=== PATIENT | male | born 1980 | race African-American/Black ===

== ENCOUNTER → 2018-08-18 | Outpatient (CLI) | payer OTHER ==
--- NOTE | 2018-08-18 22:37 | MR ---
EXAMINATION TYPE: MR knee LT wo con DATE OF EXAM: 08/18/2018 COMPARISON: Outside left knee x-ray 5 days ago. HISTORY: Lt knee pain per order. Fall injury 2 weeks ago with pain and swelling for patient. TECHNIQUE: Multiplanar, multisequence images of the knee is performed without IV contrast. FINDINGS: MEDIAL MENISCUS: Anterior and posterior horns are intact without tear. LATERAL MENISCUS: Anterior and posterior horns are intact without tear. CRUCIATE LIGAMENTS: The posterior cruciate ligament is intact and unremarkable. There is artifact fro m prior ACL repair surgery with recurrent tear as distal fibers are now absent. COLLATERAL LIGAMENTS: The medial collateral ligament and lateral collateral ligament complex are inta ct. Increased fluid surrounds the medial collateral ligament. EXTENSOR MECHANISM: Visualized quadriceps and patellar tendons are intact. EFFUSION: No significant suprapatellar joint effusion. POPLITEAL CYST: There is tiny popliteal/winters cyst on axial image 11. TRICOMPARTMENT SPACES: Mild/moderate tricompartment joint space loss with mild to moderate spurring m ost prominent medial and lateral tibiofemoral compartments. CARTILAGE:Thinning of articular cartilage medial tibial femoral compartment is present. BONE MARROW SIGNAL: Areas of heterogeneous diminished T1 and increased T2 signal distal medial femor al condyle at the site of most prominent cartilaginous loss. OTHER: No additional significant abnormality is appreciated. IMPRESSION: 1. Recurrent full thickness ACL tear felt present. 2. Mild MCL strain injury. 3. Mild to borderline moderate tricompartment degenerative changes most prominent medial tibiofemoral compartment somewhat pronounced for patient's chronologic age.
== END | disposition home or self-care (01) ==
LOC: RADMRIMAIN 21:45
PROVIDERS: ATTEND Orthopaedic Surgery
DX: S83.512A Sprain of anterior cruciate ligament of left knee, initial encounter (principal); S89.82XA Other specified injuries of left lower leg, initial encounter

== ENCOUNTER → 2018-09-06 | Outpatient (CLI) | payer OTHER ==
[2018-09-06 15:50] LABS: Basophils # (A) 0.1 k/uL (0-0.2); Basophils % (A) 1 %; Eosinophils # (A) 0.2 k/uL (0-0.7); Eosinophils % (A) 2 %; HCT 40.9 % (39.0-53.0); HGB 13.6 gm/dL (13.0-17.5); Lymphocytes # (A) 4.7 k/uL (1.0-4.8); Lymphocytes % (A) 39 %; MCH 28.1 pg (25.0-35.0); MCHC 33.2 g/dL (31.0-37.0); MCV 84.5 fL (80.0-100.0); Mean Platelet Volume 6.4; Monocytes # (A) 0.8 k/uL (0-1.0); Monocytes % (A) 6 %; Neutrophils # (A) 6.1 k/uL (1.3-7.7); Neutrophils % (A) 51 %; Platelet Count 293 k/uL (150-450); RBC 4.84 m/uL (4.30-5.90); RDW 13.5 % (11.5-15.5); WBC 12.1 k/uL (3.8-10.6)
[2018-09-06 15:59] LABS: Potassium 4.1 mmol/L (3.5-5.1)
== END | disposition home or self-care (01) ==
LOC: LABPAT 15:16
PROVIDERS: ATTEND Orthopaedic Surgery
DX: Z01.812 Encounter for preprocedural laboratory examination (principal); M23.92 Unspecified internal derangement of left knee
CPT/HCPCS: 80051; 85025

== ENCOUNTER → 2018-09-08 | Outpatient (CLI) | payer OTHER ==
--- NOTE | 2018-09-08 14:00 | MR ---
MR right wrist HISTORY: Right wrist pain Multiplanar multisequence imaging through the right wrist Correlation to plain film 08/30/2018 There is abnormal thickening, abnormal increased signal associated with the extensor carpi ulnaris te ndon of the right wrist. Some abnormal increased internal signal is present. There is edema signal pr esent along the surrounding soft tissues. Fluid is present within the radioulnar joint. There is nay a present at the distal ulna. Triangular fibrocartilage is discontinuous. Fluid signal present distal to the expected insertion of the triangular fibrocartilage along the proximal carpal row medially. S mall ossific density is present at the level of the distal aspect of the ulnar styloid as noted on pl ain film. Scapholunate, lunotriquetral been sent to be intact. IMPRESSION: Triangular fibrocartilage rupture. Possible tendinosis or posttraumatic changes to the ex tensor carpi ulnaris tendon, no donna rupture. There is joint effusion present as described.
== END | disposition home or self-care (01) ==
LOC: RADMRIMAIN 08:00
PROVIDERS: ATTEND Orthopaedic Surgery
DX: M25.431 Effusion, right wrist (principal); S63.591A Other specified sprain of right wrist, initial encounter

== ENCOUNTER 2018-09-14 08:30 | Day surgery (SDC) | payer BC, OTHER ==
[2018-09-10 10:49] VITALS: BMI 35.2
--- NOTE | 2018-09-13 10:14 | HP ---
HISTORY AND PHYSICAL CHIEF COMPLAINT: Left knee pain. 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 He tripped over a bolt on the floor at work, twisting his left knee. He has had pain and swelling ever since. He also notes giving way and instability. He has history of a left knee ACL reconstruction in 2008. PAST MEDICAL HISTORY: Significant for hypertension and attention deficit disorder. PAST SURGICAL HISTORY: Significant for previous left knee ACL reconstruction. CURRENT MEDICATIONS: Ibuprofen and Adderall. ALLERGIES: He denies drug allergies. FAMILY HISTORY: Family history is noncontributory. SOCIAL HISTORY: Significant for social alcohol use. REVIEW OF SYSTEMS: Sixteen point review of systems otherwise reviewed and is noncontributory. PHYSICAL EXAMINATION: On examination, the patient is approximately 5 feet, 11 inches, 266 pounds of endomorphic habitus. HEENT exam is nonfocal. Neck is supple. He has painless passive motion of his left hip. Straight leg raise is negative. Active motion left knee -8 to 125 degrees of flexion. He is tender about the medial joint line. He has mild effusion. Collaterals are stable, Jessica's 1+ with a soft endpoint. Pivot shift is positive. Margarita's elicits medial pain. His distal neurovascular exam appears intact in the left lower extremity. MRI report left knee 08/18/2018 shows a questionable posterior medial meniscal tear along with recurrent ACL rupture. Moderate degenerative changes are noted in all 3 compartments. IMPRESSION: Left knee internal derangement with possible medial meniscal tear in addition to recurrent ACL rupture. RECOMMENDATIONS: I talked to the patient at length regarding his condition and treatment options. At this point, he is having significant instability along with pain and mechanical symptoms. After thorough discussion, he opts to proceed with surgery. We will plan to proceed with arthroscopic evaluation with possible partial medial meniscectomy in addition to ACL reconstruction. Graft options were discussed. At this point, he opts to proceed with allograft tissue. We will potentially perform that as an outpatient procedure. Risks and benefits were discussed at length in layman's terms. MMODL / IJN: [id number] /
[~2018-09-14 08:30] MED LIST: DEXAMETHASONE SOD PHOSPHATE 10 MG/ML 1 ML VIAL IV ONE; LACTATED RINGERS 1,000 ML IV SCH; LIDOCAINE 1% 20 ML VIAL (10MG/ML) FOR IV START INTRADERMA PRN; MIDAZOLAM 2 MG/2 ML VIAL IV PRN; ONDANSETRON 4 MG/2 ML VIAL IVP ONE; SCOPOLAMINE 1.5MG/72HR PATCH TRANSDERM ONE; ceFAZolin 3 GM in SODIUM CHLORIDE 0.9% 100 ML IVPB ONE
[2018-09-14] MEDS ORDERED: LACTATED RINGERS 1,000 ML IV ONE ×3 (08:58→13:27)
[2018-09-14] MEDS ORDERED: fentaNYL (PF) 50 MCG/ML 2 ML AMP ONE (09:36)
[2018-09-14] MEDS ORDERED: HYDROmorphone (PF) 1 MG/ML ONE (09:36)
[2018-09-14] MEDS ORDERED: LIDOCAINE 1% INJ 10MG/ML (20 ML MDV) ONE (09:36)
[2018-09-14] MEDS ORDERED: MIDAZOLAM 2 MG/2 ML VIAL ONE (09:36)
[2018-09-14] MEDS ORDERED: PROPOFOL 10 MG/ML 20 ML VIAL IV ONE (09:36)
[2018-09-14] MEDS ORDERED: KETOROLAC 30 MG/ML 1 ML VIAL ONE (09:36)
[2018-09-14] MEDS ORDERED: EPINEPHrine (PF) 1 ML in SODIUM CHLORIDE 0.9% IRRIGATIO 3,000 ML IRRIGATION ONE ×4 (10:01)
[2018-09-14 11:49] VITALS: TEMP 97.3
--- NOTE | 2018-09-14 11:51 | P.OP ---
Date of Procedure: 09/14/18 Preoperative Diagnosis: Recurrent left ACL rupture Postoperative Diagnosis: Same in addition to anterior horn medial meniscal tear Procedure(s) Performed: Left knee arthroscopic ACL reconstruction utilizing allograft bone tendon bone/ partial medial meniscectomy Implants: Arthrex 8 mm x 20 mm interference screw 2 Anesthesia: TRISTIAN Surgeon: Heri Tena Product Managent Intern #1: Brice Santillan Estimated Blood Loss (ml): 20 Pathology: none sent Condition: stable Disposition: PACU Indications for Procedure: The patient's a 37-year-old male who presents after injury at work recently to his left knee. Upon evaluation he was noted have evidence of rupture of his ACL reconstruction. He is having persistent pain mechanical symptoms and instability after this injury. He discussion of the risks and benefits of operative intervention versus continued conservative measures was made with the patient. He opted to proceed with surgery. Operative risks to include infection, neurovascular injury, development of blood clots, possible ligament rerupture, possible postoperative stiffness and need for subsequent procedures was discussed. Informed consent was obtained. Operative Findings: As below Description of Procedure: The patient was brought to the operating room, and after induction of general anesthesia examined the left knee. Collaterals were stable, Jessica was 2+, piv ot shift was positive. The left lower extremity was prepped and draped in normal fashion. A superior lateral portals made through a 3 mm skin incision superior and lateral to the patella. This was used for outflow. A lateral portals made through a 5 mm vertical skin incision lateral to the patella tendon above the joint line. Diagnostic arthroscopy was performed. A medial portals made through a similar incision medial to the patella tendon above the joint line. On inspection the medial meniscus, previous partial posterior medial meniscectomy was noted. This appeared to be intact. There was an oblique tear involving the anterior horn of the medial meniscus in the white-red junction. This was debrided back to stable base with a motorized shaver. Grade 2 chondral changes were noted in the medial compartment. On inspection of the notch, the previous ACL graft appeared to be ruptured. This tissue was debrided with motorized shaver. The previous femoral tunnel appeared somewhat vertical. On inspection of the lateral compartment, there were grade 2-3 degenerative changes however no loose chondral fragments. The lateral meniscus was stable and intact. On inspection of the patellofemoral articulation, grade 2-3 chondral changes were noted diffusely. The gutters were clear debris. The soft tissue on the lateral wall was then debrided with motorized shaver and electrocautery clearly defining the posterior wall. An accessory low medial portal was made through a 4 mm skin incision for femoral tunnel placement. A 7 mm [id number]-aik-vgl guide was placed in approximately the 2:30 position on the distal femur. A guidewire was then inserted exiting the lateral thigh with the knee hyperflexed. A 10 mm reamer was utilized to drill the femoral tunnel to a depth of 25 mm. The posterior wall was inspected and was intact as well as the lateral cortex. The tibial tunnel was then planned entering the joint along the medial tibial eminence 7 mm anterior to the posterior cruciate ligament. A 10 mm tunnel was drilled with the guide set at 55. The soft tissue and bony debris was then removed. The tibial tunnel was dilated 10.5 mm. An allograft bone tendon bone ACL graft was then prepared. The tibial and femoral bone blocks were 10 mm. Overall length was 100 mm. 2 drill holes were placed in the femoral bone block and 3 in the tibial bone block and #2 Ethibond suture was passed. The graft was then placed in a retrograde fashion. The femoral bone plug was fully in the tunnel. With the knee hyperflexed a guidewire was then placed for interferent screw placement. I did notch. An 8 x 20 mm femoral interferent screw was placed with the knee in hyperflexion. Good purchase was obtained. The knee was taken through range of motion. I had no significant with impingement. With the knee in extension I then tensioned the graft and placed a guidewire for the tibial interference screw. I did tap. An 8 x 20 mm interference screw was inserted. Good purchase was obtained. Final arthroscopic view showed adequate cement of the graft and overall tension. The subcutaneous tissues were then reapproximated interrupted 2-0 Vicryl sutures. Skin was reprepped with 3-0 simple nylon sutures. The portals were closed with Steri-Strips. A sterile dressing was applied in addition to a knee immobilizer. The patient was awoken from general anesthesia and transferred to recovery room in good condition. Blood loss was estimated 20 mL. No complications were incurred. Sponge and needle counts were correct at the end of the case.
[2018-09-14] MEDS: HYDROmorphone 0.5 MG/0.5 ML SYRINGE IVP PRN ×2 (11:57→12:02)
[2018-09-14 11:58] VITALS: RESP 16
[2018-09-14] MEDS ORDERED: fentaNYL (PF) 50 MCG/ML 2 ML AMP IVP ONE (12:10)
--- NOTE | 2018-09-14 13:16 | XR ---
EXAMINATION TYPE: XR knee limited LT DATE OF EXAM: 09/14/2018 CLINICAL HISTORY: Postoperative evaluation TECHNIQUE: 2 views of the left knee are obtained. COMPARISON: None. FINDINGS: There is no acute fracture/dislocation evident in left knee. Mild to moderate tricompartme ntal arthropathy is seen with small marginal osteophytes and medial compartment joint space narrowing . Postsurgical change from prior ACL repair. New postsurgical subcutaneous emphysema and soft tissue swelling. Alignment is maintained of the left knee. IMPRESSION: Postsurgical subcutaneous edema and soft tissue swelling. Alignment is maintained of the left knee.
[2018-09-14] MEDS ORDERED: ONDANSETRON 4 MG/2 ML VIAL IVP ONE (13:29)
[2018-09-14 14:00] VITALS: BP 104/65; PULSE 847
== END 2018-09-14 14:27 | disposition home or self-care (01) ==
LOC: OR 08:30
PROVIDERS: ATTEND Orthopaedic Surgery
DX: S83.512A Sprain of anterior cruciate ligament of left knee, initial encounter (principal); S83.242A Other tear of medial meniscus, current injury, left knee, initial encounter; I10 Essential (primary) hypertension; F98.8 Other specified behavioral and emotional disorders with onset usually occurring in childhood and adolescence; Z79.1 Long term (current) use of non-steroidal anti-inflammatories (NSAID); Z79.899 Other long term (current) drug therapy; W22.8XXA Striking against or struck by other objects, initial encounter; X50.1XXA Overexertion from prolonged static or awkward postures, initial encounter; Y99.0 Civilian activity done for income or pay
CPT/HCPCS: 29888; 29881; 73560; C1713; J2250; J1100; J0690; J2405; J0171; J2001; J3010; J1885; J1170 ×2; J2704

== ENCOUNTER → 2020-06-25 | Outpatient (CLI) | payer OTHER ==
--- NOTE | 2020-06-26 12:44 | XR ---
EXAMINATION TYPE: XR knee complete LT DATE OF EXAM: 06/25/2020 CLINICAL HISTORY: Recently increased pain. ACL repair in 2019 TECHNIQUE: Three views of the left knee are obtained. COMPARISON: 09/14/2018 FINDINGS: There is no acute fracture/dislocation evident in left knee. There is mild to moderate nick rowing of the medial, lateral, and patellofemoral compartment joint spaces with osteophytes compartme nt joint space suggestive of osteoarthritis. Postsurgical changes of ACL repair. The overlying soft t issue appears unremarkable. IMPRESSION: There is no acute fracture or dislocation in the left knee. Postsurgical changes of ACL repair. Mild to moderate osteophytosis of the left knee.
== END | disposition home or self-care (01) ==
LOC: RADXRMAIN 16:43
PROVIDERS: ATTEND Physician Assistant
DX: Q78.9 Osteochondrodysplasia, unspecified (principal)

== ENCOUNTER 2020-09-01 18:26 | Emergency (ER) | payer OTHER ==
[2020-09-01] MEDS ORDERED: MAG HYDROX/AL HYDROX/SIMETH 30 ML, HYOSCYAMINE ELIXIR 10 ML, LIDOCAINE VISCOUS 2% 10 ML PO STA ×3 (18:58)
--- NOTE | 2020-09-01 19:01 | ED ---
General Adult HPI - General Chief complaint: Extremity Problem,Nontraumatic Stated complaint: lt shoulder pain Time Seen by Provider: 09/01/20 18:32 Source: patient Mode of arrival: ambulatory Limitations: no limitations - History of Present Illness Initial comments: Dictation was produced using [employer] dictation software. please excuse any grammatical, word or spelling errors. Chief Complaint: 39-year-old male with 1 month of left shoulder pain and indigestion. History of Present Illness: 39-year-old male presents emergency department for chief complaint of one month of left shoulder pain and 1 day of indigestion. Patient states he had some pizza yesterday when today he also felt like he was belching frequently and expressing symptoms of reflux. Patient states he has one month of left shoulder pain worse with abduction. Patient denies any trauma to the left shoulder. Denies any fever, chills or night sweats. Patient has no medical history of diabetes, hypertension and high cholesterol or coronary artery disease. Denies any substernal chest pressure. No associated diaphoresis or nausea. The ROS documented in this emergency department record has been reviewed and confirmed by me. Those systems with pertinent positive or negative responses have been documented in the HPI. All other systems are other negative and/or noncontributory. PHYSICAL EXAM: General Impression: Alert and oriented x3, not in acute distress HEENT: Normocephalic atraumatic, extra-ocular movements intact, pupils equal and reactive to light bilaterally, mucous membranes moist. Cardiovascular: Heart regular rate and rhythm Chest: Able to complete full sentences, no retractions, no tachypnea Abdomen: abdomen soft, non-tender, non-distended, no organomegaly Musculoskeletal: Pulses present and equal in all extremities, no peripheral edema Shoulder: Pain with active external rotation, pain elicited with downward pressure to a injury on a rotated left shoulder Motor: no focal deficits noted Neurological: CN II-XII grossly intact, no focal motor or sensory deficits noted Skin: Intact with no visualized rashes Psych: Normal affect and mood ED course: 39-year-old male with clinical presentation consistent with musculoskeletal left shoulder pain and 1 day of reflux symptoms. Vital signs upon arrival are within acceptable limits. EKG does not showany signs of ischemia or infarction. There are some PVCs noted. Laboratory evaluation obtained. CBC, metabolic panel is unremarkable. troponin negative. Shoulder x-ray shows no acute processes. Patient feels improved after GI cocktail. Patient be discharged. Is given outpatient referral to orthopedic surgery and prescription for Protonix. EKG interpretation: Ventricular rate 75, sinus rhythm,. 162, care 78, QTc 437. No TX prolongation, no QTC prolongation, no ST or T-wave changes noted. . Overall, this EKG is unremarkable - Related Data Previous Rx's Medication Instructions Recorded Ibuprofen [Motrin] 600 mg PO Q8HR PRN #30 tab 08/04/18 HYDROcodone/APAP 7.5-325MG [[place] 1 each PO Q6HR PRN #28 tab 09/14/18 7.5] Pantoprazole [Protonix] 40 mg PO DAILY #24 tablet. 09/01/20 Allergies Allergy/AdvReac Type Severity Reaction Status Date / Time No Known Allergies Allergy Verified 09/01/20 18:30 Review of Systems ROS Statement: Those systems with pertinent positive or pertinent negative responses have been documented in the HPI. ROS Other: All systems not noted in ROS Statement are negative. Past Medical History Past Medical History: No Reported History Additional Past Medical History / Comment(s): b/p up since lt knee injury History of Any Multi-Drug Resistant Organisms: None Reported Past Surgical History: Orthopedic Surgery Additional Past Surgical History / Comment(s): ACL left Past Anesthesia/Blood Transfusion Reactions: No Reported Reaction Past Psychological History: No Psychological Hx Reported Smoking Status: Never smoker Past Alcohol Use History: Occasional Past Drug Use History: None Reported - Past Family History Mother Family Medical History: No Reported History General Exam Limitations: no limitations Course Vital Signs 09/01/20 09/01/20 09/01/20 18:27 19:17 19:48 Temperature 98.2 F Pulse Rate 78 85 81 Respiratory 16 20 20 Rate Blood Pressure 170/94 161/104 149/98 O2 Sat by Pulse 97 97 96 Oximetry Medical Decision Making - Lab Data Result diagrams: 09/01/20 18:50 09/01/20 18:50 Lab Results 09/01/20 09/01/20 09/01/20 Range/Units 18:50 18:50 18:50 WBC 11.5 H (3.8-10.6) k/uL RBC 5.02 (4.30-5.90) m/uL Hgb 14.7 (13.0-17.5) gm/dL Hct 42.4 (39.0-53.0) % MCV 84.5 (80.0-100.0) fL MCH 29.3 (25.0-35.0) pg MCHC 34.6 (31.0-37.0) g/dL RDW 12.7 (11.5-15.5) % Plt Count 279 (150-450) k/uL MPV 7.0 Sodium 142 (137-145) mmol/L Potassium 3.9 (3.5-5.1) mmol/L Chloride 106 (98-107) mmol/L Carbon Dioxide 27 (22-30) mmol/L Anion Gap 9 mmol/L BUN 16 (9-20) mg/dL Creatinine 0.86 (0.66-1.25) mg/dL Est GFR (CKD-EPI)AfAm >90 (>60 ml/min/1.73 sqM) Est GFR (CKD-EPI)NonAf >90 (>60 ml/min/1.73 sqM) Glucose 125 H (74-99) mg/dL Calcium 9.8 (8.4-10.2) mg/dL Total Bilirubin 0.3 (0.2-1.3) mg/dL AST 37 (17-59) U/L ALT 30 (4-49) U/L Alkaline Phosphatase 92 (38-126) U/L Troponin I <0.012 (0.000-0.034) ng/mL Total Protein 7.6 (6.3-8.2) g/dL Albumin 4.4 (3.5-5.0) g/dL Disposition Clinical Impression: Reflux esophagitis, Shoulder pain Disposition: HOME SELF-CARE Condition: Good Instructions (If sedation given, give patient instructions): Gastroesophageal Reflux Disease (ED), Rotator Cuff Injury (ED) Prescriptions: Pantoprazole [Protonix] 40 mg PO DAILY #24 tablet.dr Is patient prescribed a controlled substance at d/c from ED?: No Referrals: Cholo Powell MD [Primary Care Provider] - 1-2 days George Hall MD [STAFF PHYSICIAN] - 1-2 days
[2020-09-01 19:30] LABS: ALT 30 U/L (4-49); AST 37 U/L (17-59); African American GFR (CKD) >90 (>60 ml/min/1.73 sqM); Albumin 4.4 g/dL (3.5-5.0); Alkaline Phosphatase 92 U/L (38-126); Anion Gap 9 mmol/L; Blood Urea Nitrogen 16 mg/dL (9-20); Calcium 9.8 mg/dL (8.4-10.2); Carbon Dioxide 27 mmol/L (22-30); Chloride 106 mmol/L (98-107); Glucose 125 mg/dL (74-99); Non-African American GFR(CKD) >90 (>60 ml/min/1.73 sqM); Potassium 3.9 mmol/L (3.5-5.1); Sodium 142 mmol/L (137-145); Total Bilirubin 0.3 mg/dL (0.2-1.3); Total Protein 7.6 g/dL (6.3-8.2)
[2020-09-01 19:32] LABS: Basophils # (A) 0.1 k/uL (0-0.2); Basophils % (A) 1 %; Eosinophils # (A) 0.3 k/uL (0-0.7); Eosinophils % (A) 3 %; HCT 42.4 % (39.0-53.0); HGB 14.7 gm/dL (13.0-17.5); Lymphocytes # (A) 5.9 k/uL (1.0-4.8); Lymphocytes % (A) 52 %; MCH 29.3 pg (25.0-35.0); MCHC 34.6 g/dL (31.0-37.0); MCV 84.5 fL (80.0-100.0); Monocytes # (A) 0.7 k/uL (0-1.0); Monocytes % (A) 6 %; Neutrophils # (A) 4.3 k/uL (1.3-7.7); Neutrophils % (A) 37 %; Platelet Count 279 k/uL (150-450); RBC 5.02 m/uL (4.30-5.90); RDW 12.7 % (11.5-15.5); WBC 11.5 k/uL (3.8-10.6)
--- NOTE | 2020-09-01 19:43 | XR ---
EXAMINATION TYPE: XR shoulder complete LT DATE OF EXAM: 09/01/2020 COMPARISON: NONE HISTORY: Pain TECHNIQUE: 3 views FINDINGS: I see no fracture nor dislocation. Glenohumeral joint is intact. There are no pathologic ca lcifications. IMPRESSION: Negative left shoulder exam.
[2020-09-01] MEDS ORDERED: ACET/COD 300 MG/30 MG STARTER PACK 6 TAB BTL PO STA (20:17)
[2020-09-01 20:32] VITALS: BP 143/91; PULSE 79; RESP 18; TEMP 98
[2020-09-01 22:03] LABS: Anisocytosis (M) Present
== END 2020-09-01 20:32 | disposition home or self-care (01) ==
LOC: EC 18:26
DX: M25.512 Pain in left shoulder (principal); K21.00 Gastro-esophageal reflux disease with esophagitis, without bleeding
CPT/HCPCS: 36415; 80053; 84484; 85025; 93005; 99284